=== PATIENT | female | born 1955 | race Caucasian/White ===

== ENCOUNTER 2017-07-16 06:02 | Inpatient (IN) | payer BC ==
[~2017-07-16 06:02] MED LIST: Acetaminophen TAB* 325 MG ONE; Acetaminophen TAB* 325 MG PO ONE; Buffered Lidocaine 0.9% SYRIN* 5 ML/SYR SYRINGE INTRADERM ONE; Clindamycin 900 MG IVPREMIX(* 900 MG/50 ML SDV IV ONE; Dexamethasone IV* 4 MG/ML 1 ML (4 MG) IV SLOW PU ONE; Dexamethasone IV* 4 MG/ML 1 ML (4 MG) ONE; Dexamethasone TAB* 4 MG PO ONE; Famotidine IV* 10 MG/ML 2 ML (20 mg) IV ONE; Famotidine IV* 10 MG/ML 2 ML (20 mg) ONE; Levalbuterol 0.63MG/3ML NEB* UNIT OF USE INH ONE; Levalbuterol 1.25MG/0.5ML NEB ONE
[2017-07-16] MEDS ORDERED: Lidocaine 2% PF * 5 ML VIAL ONE (07:01)
[2017-07-16] MEDS ORDERED: Propofol* 500 MG/50 ML BTL ONE (07:01)
[2017-07-16] MEDS ORDERED: Bupivacaine 0.5% SDV PF* 30 ML VIAL ONE ×2 (07:01→08:07)
[2017-07-16] MEDS ORDERED: Midazolam* 1 MG/ML 5 ML VIAL (5 MG) ONE (07:04)
[2017-07-16] MEDS ORDERED: fentaNYL* 50 MCG/ML 2 ML VIAL (100 MCG VIAL) ONE (07:05)
[2017-07-16] MEDS ORDERED: Morphine PF AMP (0.5MG/ML)* 5 MG/10 ML AMP ONE (07:06)
[2017-07-16] MEDS ORDERED: Bupivacaine 0.25% SDV* 30 ML ONE (07:17)
[2017-07-16] MEDS ORDERED: Lidocaine 1.5% EPI 1:200,000* 30 ML SDV ONE (08:07)
[2017-07-16] MEDS ORDERED: oxyCODONE/Acetamin 5/325 MG* TAB PO PRN (08:13)
[2017-07-16] MEDS ORDERED: oxyCODONE TAB* 5 MG TAB PO PRN (08:13)
[2017-07-16] MEDS ORDERED: Acetaminophen TAB* 325 MG PO PRN (08:13)
[2017-07-16] MEDS ORDERED: Naloxone* 0.4 MG/ML 1 ML VIAL IV PRN (08:13)
[2017-07-16] MEDS ORDERED: Nalbuphine* 20 MG/ML 1 ML VIAL IV PRN (08:13)
[2017-07-16] MEDS ORDERED: Ondansetron INJ* 2 MG/ML VIAL IV PRN (08:13)
[2017-07-16] MEDS ORDERED: Scopolamine 1.5 mg* PATCH TRANSDERM PRN (08:13)
[2017-07-16] MEDS ORDERED: HYDROmorphone INJ* 1 MG/ML CARPUJECT SYRINGE IV PRN (08:15)
[2017-07-16] MEDS ORDERED: fentaNYL* 50 MCG/ML 2 ML VIAL (100 MCG VIAL) IV PRN (08:15)
[2017-07-16] MEDS ORDERED: diPHENhydraMINE IV* 50 MG/ML 1 ml VIAL (BENADRYL) IV PRN ×2 (08:15→10:44)
[2017-07-16] MEDS ORDERED: Ondansetron INJ* 2 MG/ML VIAL ONE (08:17)
[2017-07-16] MEDS ORDERED: Phenylephrine IV* 40 MCG/ML 10 ML SYRINGE ONE ×2 (08:39→09:33)
[2017-07-16] MEDS ORDERED: Midazolam* 1 MG/ML 2 ML VIAL (2 MG) ONE (08:53)
[2017-07-16] MEDS ORDERED: Propofol* 10 MG/ML 20 ML BTL IV PUSH ONE (09:26)
[2017-07-16] MEDS ORDERED: Polyethylene Glycol 3350* 17 GM PACKET PO PRN (10:44)
[2017-07-16] MEDS ORDERED: Bisacodyl SUPP* 10 MG SUPP PR PRN (10:44)
[2017-07-16] MEDS ORDERED: Albuterol HFA INHALER* 8 gm MDI INH PRN (10:54)
[2017-07-16] MEDS ORDERED: ZOLMITRIPTAN 2.5 MG PRN (10:54)
[2017-07-16] MEDS ORDERED: Albuterol/Ipratropium NEB.SOL* Albuterol 2.5 MG/Ipratropium 0.5 MG 3 ML INH PRN (10:54)
--- NOTE | 2017-07-16 11:43 | RAD ---
INDICATION: Postoperative left knee arthroplasty COMPARISON: None TECHNIQUE: AP and crosstable lateral views were obtained. FINDINGS: There is hemiarthroplasty of the medial joint space compartment. Both femoral and tibial components appear well seated. There are anterior skin wang. There is a cooling jacket in place. IMPRESSION: LEFT KNEE HEMIARTHROPLASTY
--- NOTE | 2017-07-16 12:03 | OP ---
DATE OF OPERATION: 07/16/17 - ROOM #348 DATE OF : 59 ATTENDING SURGEON: Sebastien Long MD BREWERY WORKER: Priscilla Johnson RPA ANESTHESIOLOGIST: Sosa Strauss MD ANESTHESIA: Spinal and sedation. PRE-OP DIAGNOSIS: Left knee osteoarthritis. POST-OP DIAGNOSIS: Left knee osteoarthritis. OPERATIVE PROCEDURE: Left knee medial compartment arthroplasty. ESTIMATED BLOOD LOSS: 75 cc. COMPLICATIONS: None. HARDWARE: [employer] Knee #2 tibia, D femur, 9 mm polyethylene. 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 She had very specific wear in the medial compartment with complete loss of the articular cartilage, which was identified by both MRI and arthroscopy and the remainder of the knee was in relatively good condition. I discussed with her that a partial knee arthroplasty should work well to decrease her pain and improve her function. Risks of surgery such as infection, scar formation, stiffness, DVT, pulmonary embolism, hardware failure and the need for eventual revision were some of the risks discussed. She had been declared medically optimized and wished to proceed. DESCRIPTION OF PROCEDURE: The patient was brought to the OR and spinal anesthesia with Astramorph was introduced. Tom catheter was placed and tourniquet was placed over the proximal left thigh. Total tourniquet time would be 79 minutes. Left knee was prepped and then draped. Priscilla Johnson was present for the entire case, from positioning to prepping, approach, trialling the components and closure; the case could not be done without an geological survey field assistant. Esmarch was used to exsanguinate the leg and the tourniquet was raised. Midline incision was made, beginning just medial to the tibial tubercle and carried about 2 cm above the superior pole of the patella. Incision was carried down through the skin and subcutaneous tissues. Small bleeders encountered were ligated using electrocautery. Extensor mechanism was exposed and a sharp parapatellar arthrotomy was made. Quite a bit of clear yellowish joint fluid was encountered. Portion of the fat pad was sharply excised and soft tissues were sharply elevated from the medial side of the tibia. Spurs and exposed bone were immediately evident on the femur and the tibia. An 8 mm drill was used to open the femoral canal and the intramedullary guide was placed. Guide was adjusted until it appeared parallel with the epicondyles and perpendicular to the shaft of the tibia and this was then pinned into place. Distal femoral cut was then taken. It appeared that a nice cut was obtained. Femur was sized and the D sat very nicely, the E came up just a little bit far so it looked it might impinge on the patella and while the D did not fill side to side, the E was definitely too tall; therefore, the D was selected. The cutting guide was pinned into place and the drill holes were made as were as the chamfer cut and posterior condyle cut. Attention was turned to the tibia. External guide was placed and adjusted until it appeared that it would aim down towards the second metatarsal and was parallel with the shaft of the tibia. It appeared there was adequate slope as well and guide was then pinned into place. Cutting guide was then adjusted until appeared would take 2 mm from the worn medial side and this was then pinned into place as well. Proximal tibial cut was taken. It could be seen with the 8 mm Sizer block. She was a bit loose and the 10 sat nice and snug. It did not appear that she was overstuffed with the 10, as the 10 just slid in nicely. Soft tissues, including remainder of meniscus, were removed from the backside of the tibia. Tibia was sized and the trial sat very nicely. The 3 would appear to have a little bit of overhang after I took down the spurs. Trial was pinned into place and the proximal tibia was drilled. I made a little recess for the keel prior to this as well. Trial instrumentation was placed and with the 9, she seemed to come out fairly nicely into full extension. Trial instrumentation was removed. The knee was copiously pulse lavaged. Cement was being prepared. Tibia followed by femur were cemented into place and excess cement was removed. She was trialed with the 9 and this really seemed to fit well. I actually had troubles fitting a 10 into there. A 9 polyethylene was then snapped into place. Knee was again searched for any excess cement and few small pieces were found. Knee was again copiously pulse lavaged and the arthrotomy was then repaired. Tourniquet was let down. Wound was again copiously pulse lavaged and subcutaneous tissues were approximated with 2-0 Vicryl. Skin was closed using wang. Sterile dressing and a Cryo/ Cuff were applied in the OR. The patient was then awakened, stable on transfer to the recovery room. [id number]/[facility] #: [id number] FAUSTINA
[2017-07-16] MEDS: D5W 1/2 NS 1000 ML BAG* 1,000 ML IV SCH ×2 (12:30→21:17)
--- NOTE | 2017-07-16 13:34 | CONS ---
CC: Ayleen Bhandari MD; Dr. Sebastien Long CONSULTATION REPORT: DATE OF CONSULT: 07/16/17 PRIMARY CARE PROVIDER: Ayleen Bhandari MD PHYSICIAN REQUESTING CONSULTATION: Dr. Sebastien Long. ATTENDING PHYSICIAN: Lily Bauer MD (report dictated provided by Latisha Gonzales NP). REASON FOR CONSULTATION: Medical comanagement. 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 Long. The patient has a history of PE in the past and pulmonary hypertension that came about as a sequela from her pulmonary embolism. At the time of her pulmonary embolism, she had a hypercoagulable workup that was completely negative. The patient states she had been on control pills for a long time prior to the pulmonary embolism, but was off of them the pulmonary embolism was actually discovered. The patient denies any current shortness of breath and states that her breathing is quite stable. The patient states she uses Advair as well as a nebulizer and albuterol inhaler as needed. The patient states she has not had to use her nebulizer or inhaler recently. The patient also has a history of hypothyroidism and blood pressure, but states she is compliant with her medications and blood pressure is controlled. Hospitalists were asked to assist with the comanagement of the patient during her hospitalization. PAST MEDICAL HISTORY: Depression, pulmonary embolism in 2005, migraines, hearing impairment, pulmonary hypertension after PE, hypothyroidism, dyspnea, asthma, enlarged thoracic aorta. PAST SURGICAL HISTORY: Hysterectomy, knee arthroscopy, . MEDICATIONS: Home medications include: 1. Zyrtec 10 mg oral in the evening. 2. Zomig 2.5 mg oral as needed. 3. Turmeric 500 mg oral in the morning. 4. Naproxen 220 mg oral every 6 hours as needed. 5. Singulair 10 mg oral in the morning. 6. Cozaar 25 mg oral in the evening. 7. Synthroid 100 mcg oral in the morning. 8. Ipratropium 1 inhaled nebulizer daily as needed. 9. Advil 200 mg oral twice daily as needed. 10. Prozac 20 mg oral in the morning. 11. Ventolin HFA 2 puffs inhaled every 6 hours as needed. 12. Naproxen 220 mg oral every 8 hours as needed. Current medications while in the hospital: 1. Tylenol 650 mg oral every 4 hours as needed. 2. Clindamycin q.8. 3. Benadryl 12.5 mg IV as needed. 4. Colace twice a day. 5. Heparin subcu 5000 units subcu every 8 hours. 6. Lactated Ringer's. 7. Dilaudid 0.2 mg IV as needed. 8. Lactulose 30 mL oral twice daily. 9. Milk of mag 30 mL oral twice daily. 10. Multivitamin 1 tablet daily. 11. Narcan 5 mg IV q.6 as needed. 12. Zofran 4 mg IV q.6 as needed. 13. Oxycodone 5 or 10 mg every 3 hours as needed. 14. Percocet 5/325 every 4 hours as needed. 15. MiraLAX 17 g oral daily as needed. 16. Scopolamine 1 patch transdermal every 72 hours. ALLERGIES: Include IV CONTRAST, KEFLEX, DILTIAZEM, SULFA ANTIBIOTICS, BACTRIM. FAMILY HISTORY: The patient's father had a history of aortic aneurysm and sister had a history of breast cancer. SOCIAL HISTORY: The patient denies any tobacco use. She has an occasional alcohol drink. 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 She is . Her , Adriel Rueda will be her surrogate decision maker in the event the patient cannot make decisions for herself. REVIEW OF SYSTEMS: I performed a 14-point review of systems; all the pertinent positives and negatives are mentioned in the history of present illness. The remaining review of systems are negative. PHYSICAL EXAM: Vital Signs: Temperature 98.2, heart rate 66, respiratory rate 16, blood pressure 115/68, oxygen saturation 94% on 2 L. Appearance: The patient is alert, pleasant, appeared to be in no apparent distress. Head, Eyes , Ears, Nose and Throat: Normocephalic/atraumatic. Pupils were equal and reactive to light. Extraocular movements were intact. Neck: Neck was supple. There was no lymphadenopathy noted. Cardiac: S1 and S2 were crisp. There were no murmurs, rubs, or gallops heard. Extremities: There is no lower extremity edema. DP and PT pulses were 2+ and symmetric. Respiratory: There was no accessory muscle use. Lungs are clear to auscultation. Abdomen was soft , nontender, and nondistended. There were decreased bowel sounds. Musculoskeletal: There was no clubbing or cyanosis noted. The patient exhibited equal strength in all extremities. Skin: There were no rashes or abnormalities seen. Neuro: Cranial nerves II through XII were intact. The patient moves all extremities. Lower extremities were intact to light touch. Psych: The patient is alert and oriented x3. LABORATORY DATA: Preop from 06/19/17, sodium 134, potassium 4.6, chloride 102, CO2 27, BUN 16, creatinine 0.76, glucose 79. Calcium 8.9. Liver function tests within normal limits. White blood cell count 5.1, hemoglobin 13.8, hematocrit 40, platelet count 249. INR 0.9, PTT 31.8. IMPRESSION: This is a 61-year-old female with past medical history significant for pulmonary embolism and pulmonary hypertension as a result as well as hypothyroidism, hypertension, who underwent an elective partial left total knee replacement with Dr. Long. Hospitalists were asked to assist in the comanagement of the patient's other medical conditions during her hospitalization. ASSESSMENT AND PLAN: 1. Postop day #0, left partial total knee replacement. Management per Orthopedic Surgery. The patient will have oral and IV medications for pain. The patient will have physical therapy and occupational therapy. 2. History of pulmonary embolism. The patient will have prophylactic anticoagulation as per what her primary care provider has recommended. Initially, she will be placed on subcu heparin and then when it is okay with orthopedic surgeons, Dr. Bhandari has recommended and already prescribed Lovenox 30 mg subcu q.12 hours for the patient. The plan is for the patient to stay on this for 30 days given her history of pulmonary embolism. 3. History of pulmonary hypertension. Continue with Advair and Xopenex inhaler while she is here. Provide supplemental oxygen as needed. 4. Hypertension. Continue Cozaar with hold parameters. 5. Hypothyroidism. Continue Synthroid. 6. Fluids, electrolytes, and nutrition. The patient will be on clears and advance as tolerated. 7. Code status is full. 8. DVT prophylaxis. She is at very high risk given her recent surgery and history of pulmonary embolism. She will be initially started on subcu heparin and transition to Lovenox when Orthopedic Surgery is okay with that per recommendations from her PCP. TIME SPENT: Time for this consultation was 60 minutes, and 35 minutes were spent with the patient discussing medications, past medical history, and events leading up to her elective surgery. Reviewed by LATISHA GONZALES NP 07/16/2017 1800 [id number]/[facility] #: [id number] FAUSTINA
[2017-07-16] MEDS: Clindamycin 600 MG IVPREMIX(* 600 MG/50 ML SDV IV SCH (15:33)
[2017-07-16] MEDS: Cetirizine* 10 MG TAB PO SCH (17:51)
[2017-07-16] MEDS ORDERED: Losartan TAB* 25 MG PO SCH ×2 (18:00)
[2017-07-16] MEDS: Magnesium Hydroxide LIQ* 30 ML UDC PO SCH (19:33)
[2017-07-16] MEDS: Docusate CAP* 100 MG PO SCH (19:37)
[2017-07-17] MEDS ORDERED: Morphine INJ* 10 MG/ML 1 ML CARPUJECT IV PRN
[2017-07-17] MEDS ORDERED: oxyCODONE/Acetamin 5/325 MG* TAB PO PRN
[2017-07-17] MEDS ORDERED: Ondansetron TAB* 4 MG PO PRN
[2017-07-17] MEDS: Clindamycin 600 MG IVPREMIX(* 600 MG/50 ML SDV IV SCH ×2 (00:07→07:48)
[2017-07-17] MEDS: oxyCODONE TAB* 5 MG TAB PO PRN ×3 (03:35→11:55)
[2017-07-17] MEDS: Acetaminophen TAB* 325 MG PO PRN ×3 (03:36→11:55)
[2017-07-17] MEDS: Levothyroxine TAB* 100 MCG TAB PO SCH (05:30)
[2017-07-17] MEDS: D5W 1/2 NS 1000 ML BAG* 1,000 ML IV SCH (05:38)
[2017-07-17 05:39] LABS: Hematocrit 32 % (35-47); Hemoglobin 11.3 g/dl (12.0-16.0)
[2017-07-17 05:51] LABS: BUN/Creatinine Ratio 15.4 (8-20); Calcium 8.1 mg/dL (8.6-10.3); EGFR Non-African American 93.3 (>60); Potassium 4.1 mmol/L (3.5-5.0)
[2017-07-17] MEDS ORDERED: SUMAtriptan TAB* 50 MG PO PRN (06:43)
[2017-07-17] MEDS: Ondansetron INJ* 2 MG/ML VIAL IV PRN ×2 (07:50→16:22)
[2017-07-17] MEDS ORDERED: NS 0.9% 1000 ML* 1,000 ML IV SCH (08:00)
[2017-07-17] MEDS: Magnesium Hydroxide LIQ* 30 ML UDC PO SCH ×2 (09:04→21:49)
[2017-07-17] MEDS: Vitamin THERAPEUTIC TAB PO SCH (09:15)
[2017-07-17] MEDS: FLUoxetine CAP* 20 MG PO SCH (09:15)
[2017-07-17] MEDS: Docusate CAP* 100 MG PO SCH ×2 (09:15→21:50)
[2017-07-17] MEDS: Montelukast Sodium TAB* 10 MG PO SCH (09:15)
--- NOTE | 2017-07-17 09:15 | PN ---
Progress Note - Progress Note Date of Service: 07/17/17 SOAP: Subjective: []Patient seen out of bed in chair. Left knee pain is reported as 5/10, tolerable. Had 1 episode of nausea and vomiting this morning associated with migraine. She remains mildly nauseous and migraine has resolved. Patient does suffer from migraines at home, and character matches her usual migraine- Right temporal region, nausea and slight dizziness with no aura or visual changes. Tom was removed this morning and she urinate on her own. No BM and no passing gas yet. No chest pain, shortness of breath, fever, chills, LLE numbness or tingling. Objective: [] Vital Signs Temp 98.1 F 07/17/17 07:34 Pulse 67 07/17/17 07:34 Resp 16 07/17/17 08:00 BP 102/59 07/17/17 07:34 Pulse Ox 98 07/17/17 07:34 Intake & Output 07/16/17 07/17/17 07/17/17 18:59 06:59 18:59 Intake Total 3480 3259 Output Total 635 1850 Balance 2845 1409 Intake: IV Fluids 1950 1937 900MG CLINDAMYCIN 50 D5W 1/2 NS 1937 lr 1900 IVPB 122 ABX - CLINDAMYCIN 122 Oral 1530 1200 Output: Urine 0 Tom 625 1850 Estimated Blood Loss 10 Other: # Bowel Movements 0 Laboratory Last Values Hgb 11.3 g/dl (12.0-16.0) L 07/17/17 05:26 Hct 32 % (35-47) L 07/17/17 05:26 Sodium 122 mmol/L (133-145) L 07/17/17 05:26 Potassium 4.1 mmol/L (3.5-5.0) 07/17/17 05:26 Chloride 95 mmol/L (101-111) L 07/17/17 05:26 Carbon Dioxide 23 mmol/L (22-32) 07/17/17 05:26 Anion Gap 4 mmol/L (2-11) 07/17/17 05:26 BUN 10 mg/dL (6-24) 07/17/17 05:26 Creatinine 0.65 mg/dL (0.51-0.95) 07/17/17 05:26 Est GFR ( Amer) 120.0 (>60) 07/17/17 05:26 Est GFR (Non-Af Amer) 93.3 (>60) 07/17/17 05:26 BUN/Creatinine Ratio 15.4 (8-20) 07/17/17 05:26 Glucose 109 mg/dL (70-100) H 07/17/17 05:26 Calcium 8.1 mg/dL (8.6-10.3) L 07/17/17 05:26 Blood Type A Positive 07/16/17 06:22 Antibody Screen Negative 07/16/17 06:22 General: Sitting in chair comfortably. Calm, cooperative and in no acute distress LLE: Dressing is clean, dry and intact. Cryotherapy in place. Bilateral lower extremities: Calves are supple and nontender without erythema, edema or palpable cords. Eli's sign is negative. Dorsiflexion and plantarflexion intact. DP/PT pulses 2+ and symmetic. Sensation intact distally. Assessment: []Left Medial Compartment Arthroplasty 07/16 Dr Long Plan: []WBAT PT/OT Pain control with oxycodone, tylenol History of PE. On heparin during hospital stay. Her PCP, Dr Bhandari, prescribed 1 month of lovenox for her to use during her post-op period.
[2017-07-17] MEDS ORDERED: Metoclopramide IV* 5 MG/ML 2 ML VIAL IV PRN (10:51)
[2017-07-17] MEDS ORDERED: Metoclopramide IV* 5 MG/ML 2 ML VIAL ONE (10:59)
[2017-07-17] MEDS: Heparin VIAL(*) 5000 UNITS/ML VIAL (FIVE THOUSAND) SUBCUT SCH ×2 (14:33→21:51)
[2017-07-17] MEDS ORDERED: Ketorolac INJ* 30 MG/ML 1 ML VIAL IV PUSH PRN (15:56)
[2017-07-17] MEDS ORDERED: HYDROcodone/ACETAMIN 5-325 MG* 1 TAB PO PRN (16:29)
--- NOTE | 2017-07-17 16:36 | PN ---
Subjective Date of Service: 07/17/17 Interval History: This is a 61 yo female with asthma, HTN, hypothyroidism and prior PE who is s/p partial knee replacement. Hospitalist group has been asked to consult for medical co-management. Patient reports that she has been quite nauseated today. She believes it may be related to the oxycodone. She denies abd pain or diarrhea. No cough, SOB or CP. Pain has not been well controlled. Objective Active Medications: Acetaminophen (Tylenol Tab*) 650 mg PO Q4H PRN PRN Reason: fever, pain Last Admin: 07/17/17 11:55 Dose: 650 mg Hydrocodone Bitart/Acetaminophen (Notrees 5-325 Tab*) 2 tab PO Q4H PRN PRN Reason: PAIN - MODERATE Hydrocodone Bitart/Acetaminophen (Notrees 5-325 Tab*) 1 tab PO Q4H PRN PRN Reason: PAIN Albuterol (Ventolin Hfa Inhaler*) 2 puff INH Q6H PRN PRN Reason: SOB/WHEEZING Albuterol/Ipratropium (Duoneb (Albuterol 2.5 Mg/Ipratropium 0.5 Mg)) 1 neb INH DAILY PRN PRN Reason: SOB/WHEEZING Bisacodyl (Dulcolax Supp*) 10 mg SD DAILY PRN PRN Reason: constipation Cetirizine HCl (Zyrtec*) 10 mg PO QPM [facility] Last Admin: 07/16/17 17:51 Dose: 10 mg Diphenhydramine HCl (Benadryl Iv*) 12.5 mg IV Q6H PRN PRN Reason: PRURITIS Docusate Sodium (Colace Cap*) 100 mg PO BID [facility] Last Admin: 07/17/17 09:15 Dose: 100 mg Fluoxetine HCl (Prozac Cap*) 20 mg PO QAM [facility] Last Admin: 07/17/17 09:15 Dose: 20 mg Heparin Sodium (Porcine) (Heparin Vial(*)) 5,000 units SUBCUT Q8HR [facility] Last Admin: 07/17/17 14:33 Dose: 5,000 units Ketorolac Tromethamine (Toradol Inj*) 30 mg IV PUSH Q6H PRN PRN Reason: PAIN - MILD TO MODERATE Stop: 07/19/17 23:59 Last Admin: 07/17/17 16:17 Dose: 30 mg Lactulose (Lactulose*) 30 ml PO BID [facility] Last Admin: 07/17/17 09:04 Dose: Not Given Levothyroxine Sodium (Synthroid Tab*) 100 mcg PO 0600 [facility] Last Admin: 07/17/17 05:30 Dose: 100 mcg Magnesium Hydroxide (Milk Of Magnesia Liq*) 30 ml PO BID [facility] Last Admin: 07/17/17 09:04 Dose: Not Given Metoclopramide HCl (Reglan Iv*) 10 mg IV Q6H PRN PRN Reason: NAUSEA/VOMITING Last Admin: 07/17/17 11:00 Dose: 10 mg Montelukast Sodium (Singulair Tab*) 10 mg PO QAM [facility] Last Admin: 07/17/17 09:15 Dose: 10 mg Morphine Sulfate (Morphine Inj (Syringe)*) 5 mg IV Q2H PRN PRN Reason: PAIN - BREAKTHROUGH Multivitamins (Theragran Tab*) 1 tab PO DAILY [facility] Last Admin: 07/17/17 09:15 Dose: 1 tab Ondansetron HCl (Zofran Inj*) 4 mg IV Q6H PRN PRN Reason: nausea Last Admin: 07/17/17 16:22 Dose: 4 mg Ondansetron HCl (Zofran Tab*) 4 mg PO Q6H PRN PRN Reason: NAUSEA Pharmacy Profile Note (Scopolomine Patch Remove*) 1 note PATCH OFF ONCE PRN PRN Reason: NAUSEA Polyethylene Glycol/Electrolytes (Miralax*) 17 gm PO DAILY PRN PRN Reason: Constipation Scopolamine (Transderm-Scop 1.5 Mg Patch*) 1 patch TRANSDERM Q72H PRN PRN Reason: nausea Last Admin: 07/17/17 10:16 Dose: 1 patch Sumatriptan Succinate (Imitrex Tab*) 50 mg PO BID PRN PRN Reason: MIGRAINES Last Admin: 07/17/17 06:58 Dose: 50 mg Vital Signs: Temp Pulse Resp BP Pulse Ox 97.8 F 67 18 124/73 99 07/17/17 15:17 07/17/17 15:17 07/17/17 15:17 07/17/17 15:17 07/17/17 15:17 Oxygen Devices in Use Now: None Appearance: Mildly ill appearing middle aged female in NAD Respiratory: Symmetrical Chest Expansion and Respiratory Effort, Clear to Auscultation Cardiovascular: NL Sounds; No Murmurs; No JVD, RRR Abdominal: NL Sounds; No Tenderness; No Distention Extremities: No Edema Skin: No Rash or Ulcers Neurological: Alert and Oriented x 3 Result Diagrams: 07/17/17 05:26 07/17/17 05:26 Assess/Plan/Problems-Billing Assessment: This is a 61 yo female with asthma, HTN, hypothyroidism, h/o PE and associated pulm HTN who presented for elective partial knee replacement with Dr Long. Hospitalist group has been asked to consult for medical co-management. - Patient Problems (1) Status post right partial knee replacement Comment: POD #1 Struggling with pain and nausea control Trial use of hydrocodone as opposed to oxycodone to see if this is better tolerated (2) Hyponatremia Comment: May be dilutional related to post-op fluids Switched from D51/2NS to NS Repeat BMP in am (3) Asthma Comment: Mild intermittent No acute exacerbation (4) Hypertension Comment: Normotensive Holding ARB at this time until she is no longer nauseated (5) History of pulmonary embolus (PE) Comment: Reviewed with PCP pre-op Recommend 30mg Lovenox bid x 4 weeks (6) Hypothyroidism Comment: Cont levothyroxine (7) Full code status (8) DVT prophylaxis Comment: per ortho, currently receiving SQ heparin Recommend switching to 30 mg Lovenox bid Status and Disposition: Dispo per ortho. Hospitalist group will continue to follow along
[2017-07-17] MEDS: Cetirizine* 10 MG TAB PO SCH (17:32)
[2017-07-17] MEDS: HYDROcodone/ACETAMIN 5-325 MG* 1 TAB PO PRN ×2 (17:33→21:50)
[2017-07-17] MEDS ORDERED: Apixaban* 5 MG TAB PO SCH (21:00)
[2017-07-18] MEDS: HYDROcodone/ACETAMIN 5-325 MG* 1 TAB PO PRN ×4 (04:30→20:33)
[2017-07-18] MEDS: Levothyroxine TAB* 100 MCG TAB PO SCH (06:03)
[2017-07-18] MEDS: Heparin VIAL(*) 5000 UNITS/ML VIAL (FIVE THOUSAND) SUBCUT SCH (06:04)
[2017-07-18 06:52] LABS: Hematocrit 35 % (35-47)
[2017-07-18 07:02] LABS: BUN/Creatinine Ratio 12.7 (8-20); Calcium 8.5 mg/dL (8.6-10.3); EGFR African American 108.4 (>60); EGFR Non-African American 84.3 (>60)
[2017-07-18] MEDS ORDERED: Furosemide IV* 10 MG/ML 2 ML VIAL (20 MG) IV ONE (07:25)
[2017-07-18] MEDS: FLUoxetine CAP* 20 MG PO SCH (08:47)
[2017-07-18] MEDS: Vitamin THERAPEUTIC TAB PO SCH (08:47)
[2017-07-18] MEDS: Montelukast Sodium TAB* 10 MG PO SCH (08:47)
[2017-07-18] MEDS: Docusate CAP* 100 MG PO SCH ×2 (08:47→20:33)
--- NOTE | 2017-07-18 09:07 | PN ---
Progress Note - Progress Note Date of Service: 07/18/17 SOAP: Subjective: []Patient seen at bedside. Her pain is well controlled. She reports mild nausea today but no vomiting since yesterday. She had a BM today. She denies confusion , dizziness, chest pain, shortness of breath, leg numbness, fever or chills. Objective: [] Vital Signs Temp 98.1 F 07/18/17 07:39 Pulse 78 07/18/17 08:07 Resp 18 07/18/17 08:46 BP 131/74 07/18/17 07:39 Pulse Ox 95 07/18/17 07:39 Intake & Output 07/17/17 07/18/17 07/18/17 18:59 06:59 18:59 Intake Total 1508 1120 320 Output Total 1300 1500 Balance 208 -380 320 Intake: IV Fluids 1358 D5W 1/2 NS 358 NS (0.9%) 1000 IVPB 50 ABX - CLINDAMYCIN 50 Oral 100 1120 320 Output: Urine 300 1500 Emesis 1000 Other: # Bowel Movements 0 Laboratory Last Values Hgb 12.0 g/dl (12.0-16.0) 07/18/17 06:28 Hct 35 % (35-47) 07/18/17 06:28 Sodium 123 mmol/L (133-145) L 07/18/17 06:28 Potassium 4.0 mmol/L (3.5-5.0) 07/18/17 06:28 Chloride 94 mmol/L (101-111) L 07/18/17 06:28 Carbon Dioxide 26 mmol/L (22-32) 07/18/17 06:28 Anion Gap 3 mmol/L (2-11) 07/18/17 06:28 BUN 9 mg/dL (6-24) 07/18/17 06:28 Creatinine 0.71 mg/dL (0.51-0.95) 07/18/17 06:28 Est GFR ( Amer) 108.4 (>60) 07/18/17 06:28 Est GFR (Non-Af Amer) 84.3 (>60) 07/18/17 06:28 BUN/Creatinine Ratio 12.7 (8-20) 07/18/17 06:28 Glucose 96 mg/dL (70-100) 07/18/17 06:28 Calcium 8.5 mg/dL (8.6-10.3) L 07/18/17 06:28 Blood Type A Positive 07/16/17 06:22 Antibody Screen Negative 07/16/17 06:22 General: Calm, cooperative. Well appearing, no acute distress. LLE: Dressing is CDI. No surrounding erythema. + bruising inferior to dressing Bilateral lower extremities: Calves supple and nontender without erythema or edema. No palpable cords and negative cher's sign. DP/PT pulses 2+. DF/PT intact. Sensation intact distally. Assessment: []s/p Left medial compartment arthroplasty 07/16/17, Dr. Long Plan: []WBAT PT/OT Co-managed with hospitalist service Per discussion with hospitalist Sami Howell: - switched from heparin to lovenox 40 mg SQ Q 12 hours. Patient has this medication at home already for post op coverage as well. - d/c oxycodone due to nausea, transition to hydrocodone - hyponatremia managed by medicine, not a contraindication to discharge at this time.
[2017-07-18] MEDS: Magnesium Hydroxide LIQ* 30 ML UDC PO SCH ×2 (09:09→20:34)
--- NOTE | 2017-07-18 10:32 | PN ---
Progress Note - Progress Note Date of Service: 07/18/17 SOAP: Subjective: [Pt reports nausea better with the change in pain meds, but still apprehensive about it. Also worried about doing stairs today. Overall though, better than yesterday with the knee pain and nausea.] Objective: [VSS: afebrile. Labs: H/H: , Na still low at 123 Left knee: Wound benign, no drainage, no erythema, but swollen and ecchymotic about knee and extends down into the top half of the calf. Still N/V intact, easily wiggling toes and ankle.] Assessment: [Stable] Plan: [Cont OOB/PT, DVT prophalaxis, care. If does extremely well with PT and nausea stays improved/she is able to tolerate PO, possible d/c this afternoon, but more likely tomorrow AM.]
--- NOTE | 2017-07-18 11:24 | PN ---
Subjective Date of Service: 07/18/17 Interval History: Patient reports that her symptoms are better today. Her nausea has improved. She was able to eat breakfast. Pain is adequately controlled today. No cough, SOB. No abd pain. She had a small BM today. Objective Active Medications: Acetaminophen (Tylenol Tab*) 650 mg PO Q4H PRN PRN Reason: fever, pain Last Admin: 07/17/17 11:55 Dose: 650 mg Hydrocodone Bitart/Acetaminophen ([place] 5-325 Tab*) 2 tab PO Q4H PRN PRN Reason: PAIN - MODERATE Last Admin: 07/18/17 08:46 Dose: 2 tab Hydrocodone Bitart/Acetaminophen ([place] 5-325 Tab*) 1 tab PO Q4H PRN PRN Reason: PAIN Albuterol (Ventolin Hfa Inhaler*) 2 puff INH Q6H PRN PRN Reason: SOB/WHEEZING Albuterol/Ipratropium (Duoneb (Albuterol 2.5 Mg/Ipratropium 0.5 Mg)) 1 neb INH DAILY PRN PRN Reason: SOB/WHEEZING Bisacodyl (Dulcolax Supp*) 10 mg MI DAILY PRN PRN Reason: constipation Cetirizine HCl (Zyrtec*) 10 mg PO QPM [facility] Last Admin: 07/17/17 17:32 Dose: 10 mg Diphenhydramine HCl (Benadryl Iv*) 12.5 mg IV Q6H PRN PRN Reason: PRURITIS Docusate Sodium (Colace Cap*) 100 mg PO BID [facility] Last Admin: 07/18/17 08:47 Dose: 100 mg Enoxaparin Sodium (Lovenox(*)) 40 mg SUBCUT Q12H [facility] Fluoxetine HCl (Prozac Cap*) 20 mg PO QAM [facility] Last Admin: 07/18/17 08:47 Dose: 20 mg Ketorolac Tromethamine (Toradol Inj*) 30 mg IV PUSH Q6H PRN PRN Reason: PAIN - MILD TO MODERATE Stop: 07/19/17 23:59 Last Admin: 07/17/17 16:17 Dose: 30 mg Lactulose (Lactulose*) 30 ml PO BID [facility] Last Admin: 07/18/17 08:47 Dose: 30 ml Levothyroxine Sodium (Synthroid Tab*) 100 mcg PO 0600 [facility] Last Admin: 07/18/17 06:03 Dose: 100 mcg Magnesium Hydroxide (Milk Of Magnfrederic Liq*) 30 ml PO BID [facility] Last Admin: 07/18/17 09:09 Dose: Not Given Metoclopramide HCl (Reglan Iv*) 10 mg IV Q6H PRN PRN Reason: NAUSEA/VOMITING Last Admin: 07/17/17 11:00 Dose: 10 mg Montelukast Sodium (Singulair Tab*) 10 mg PO QAM [facility] Last Admin: 07/18/17 08:47 Dose: 10 mg Morphine Sulfate (Morphine Inj (Syringe)*) 5 mg IV Q2H PRN PRN Reason: PAIN - BREAKTHROUGH Multivitamins (Theragran Tab*) 1 tab PO DAILY [facility] Last Admin: 07/18/17 08:47 Dose: 1 tab Ondansetron HCl (Zofran Inj*) 4 mg IV Q6H PRN PRN Reason: nausea Last Admin: 07/17/17 16:22 Dose: 4 mg Ondansetron HCl (Zofran Tab*) 4 mg PO Q6H PRN PRN Reason: NAUSEA Last Admin: 07/18/17 08:42 Dose: 4 mg Pharmacy Profile Note (Scopolomine Patch Remove*) 1 note PATCH OFF ONCE PRN PRN Reason: NAUSEA Polyethylene Glycol/Electrolytes (Miralax*) 17 gm PO DAILY PRN PRN Reason: Constipation Scopolamine (Transderm-Scop 1.5 Mg Patch*) 1 patch TRANSDERM Q72H PRN PRN Reason: nausea Last Admin: 07/17/17 10:16 Dose: 1 patch Sumatriptan Succinate (Imitrex Tab*) 50 mg PO BID PRN PRN Reason: MIGRAINES Last Admin: 07/17/17 06:58 Dose: 50 mg Vital Signs: Temp Pulse Resp BP Pulse Ox 98.1 F 78 18 131/74 95 07/18/17 07:39 07/18/17 08:07 07/18/17 08:46 07/18/17 07:39 07/18/17 07:39 Oxygen Devices in Use Now: None Appearance: Well appearing middle aged female in NAD Respiratory: Symmetrical Chest Expansion and Respiratory Effort, Clear to Auscultation Cardiovascular: NL Sounds; No Murmurs; No JVD, RRR Abdominal: NL Sounds; No Tenderness; No Distention Extremities: - - trace LE edema bilaterally Neurological: Alert and Oriented x 3 Result Diagrams: 07/18/17 06:28 07/18/17 06:28 Assess/Plan/Problems-Billing Assessment: This is a 61 yo female with asthma, HTN, hypothyroidism, h/o PE and associated pulm HTN who presented for elective partial knee replacement with Dr Long. Hospitalist group has been asked to consult for medical co-management. - Patient Problems (1) Status post right partial knee replacement Comment: POD #2 Improved nausea and pain control (2) Hyponatremia Comment: Slight improvement to 123 mmol/L this am Ordered one dose of IV Lasix in hopes of excreting excess free fluid Repeat BMP this afternoon and tomorrow am (3) Asthma Comment: Mild intermittent - generally exercise induced No acute exacerbation (4) Hypertension Comment: Normotensive Holding ARB at this time until she is no longer nauseated (5) History of pulmonary embolus (PE) Comment: Reviewed with PCP pre-op Recommend 30mg Lovenox bid x 4 weeks (6) Hypothyroidism Comment: Cont levothyroxine (7) Full code status (8) DVT prophylaxis Comment: per ortho, 30mg Lovenox bid Status and Disposition: Dispo per ortho. Hospitalist group will continue to follow along
[2017-07-18 15:33] LABS: BUN/Creatinine Ratio 10.4 (8-20); Calcium 8.5 mg/dL (8.6-10.3); EGFR African American 98.7 (>60); EGFR Non-African American 76.7 (>60)
[2017-07-18] MEDS: Enoxaparin(*) 40 MG/0.4 ML SYR SUBCUT SCH (16:41)
[2017-07-18] MEDS: Cetirizine* 10 MG TAB PO SCH (18:29)
[2017-07-19] MEDS: HYDROcodone/ACETAMIN 5-325 MG* 1 TAB PO PRN ×2 (00:36→08:48)
[2017-07-19] MEDS: Enoxaparin(*) 40 MG/0.4 ML SYR SUBCUT SCH (04:35)
[2017-07-19] MEDS: Levothyroxine TAB* 100 MCG TAB PO SCH (06:00)
[2017-07-19 07:04] LABS: Hematocrit 33 % (35-47); Hemoglobin 11.7 g/dl (12.0-16.0)
[2017-07-19 07:17] LABS: BUN/Creatinine Ratio 13.3 (8-20); Calcium 8.4 mg/dL (8.6-10.3); EGFR African American 101.7 (>60); EGFR Non-African American 79.1 (>60); Potassium 4.3 mmol/L (3.5-5.0)
--- NOTE | 2017-07-19 08:40 | PN ---
Progress Note - Progress Note Date of Service: 07/19/17 SOAP: Subjective: []Patient seen at bedside. She feels well and is agreeable to discharge today. No difficulty with pain control. Tolerating PO, urinating and having bowel movements without difficulty. Denies dizziness, nausea, vomiting, chest pain, shortness of breath, fever, chills or leg numbness. Objective: [] Vital Signs Temp 98.6 F 07/19/17 07:20 Pulse 76 07/19/17 07:20 Resp 18 07/19/17 07:20 BP 119/61 07/19/17 07:20 Pulse Ox 95 07/19/17 07:20 Intake & Output 07/18/17 07/19/17 07/19/17 18:59 06:59 18:59 Intake Total 1315 800 Output Total 1999 2200 900 Balance -685 -1400 -900 Intake: Oral 1315 800 Output: Urine 19990 900 Other: # Bowel Movements 1 Estimated Stool Amount Small Laboratory Last Values Hgb 11.7 g/dl (12.0-16.0) L 07/19/17 06:24 Hct 33 % (35-47) L 07/19/17 06:24 Sodium 129 mmol/L (133-145) L 07/19/17 06:24 Potassium 4.3 mmol/L (3.5-5.0) 07/19/17 06:24 Chloride 98 mmol/L (101-111) L 07/19/17 06:24 Carbon Dioxide 28 mmol/L (22-32) 07/19/17 06:24 Anion Gap 3 mmol/L (2-11) 07/19/17 06:24 BUN 10 mg/dL (6-24) 07/19/17 06:24 Creatinine 0.75 mg/dL (0.51-0.95) 07/19/17 06:24 Est GFR ( Amer) 101.7 (>60) 07/19/17 06:24 Est GFR (Non-Af Amer) 79.1 (>60) 07/19/17 06:24 BUN/Creatinine Ratio 13.3 (8-20) 07/19/17 06:24 Glucose 101 mg/dL (70-100) H 07/19/17 06:24 Calcium 8.4 mg/dL (8.6-10.3) L 07/19/17 06:24 Blood Type A Positive 07/16/17 06:22 Antibody Screen Negative 07/16/17 06:22 General: Out of bed sitting comfortably in chair. Pleasant, calm and cooperative. In no acute distress. LLE: Incision CDI. Wound edges with no surrounding erythema and no discharge. Bilateral lower extremities: calves are supple, nontender, nonerythematous and nonedematous. No palpable cords and negative cher's sign. DP/PT pulses 2+ and symmetric. Brisk capillary refill distally. Sensation is intact to light touch distally. DF/KS intact. Assessment: []Left medial compartment arthroplasty 07/16/17, Dr. Long Hyponatremia- improved Plan: []WBAT PT/OT Home on lovenox ( has 1 month rx from PCP at home) Plan DC today Sodium trending towards normal. Home nursing to repeat at first visit of the week 07/23-
[2017-07-19] MEDS: Vitamin THERAPEUTIC TAB PO SCH (08:48)
[2017-07-19] MEDS: Montelukast Sodium TAB* 10 MG PO SCH (08:48)
[2017-07-19] MEDS: Docusate CAP* 100 MG PO SCH (08:48)
[2017-07-19] MEDS: Magnesium Hydroxide LIQ* 30 ML UDC PO SCH (08:48)
[2017-07-19] MEDS: FLUoxetine CAP* 20 MG PO SCH (08:48)
[2017-07-19] MEDS ORDERED: Scopolamine PATCH Remove* 1 NOTE MISC PATCH OFF PRN (10:00)
[2017-07-19 12:03] VITALS: BP 136/72
--- NOTE | 2017-07-19 13:48 | PN ---
Subjective Date of Service: 07/19/17 Interval History: Patient reports that she is doing well. She is being discharged by orthopedic surgery today. Objective Active Medications: Acetaminophen (Tylenol Tab*) 650 mg PO Q4H PRN PRN Reason: fever, pain Last Admin: 07/17/17 11:55 Dose: 650 mg Hydrocodone Bitart/Acetaminophen ([place] 5-325 Tab*) 2 tab PO Q4H PRN PRN Reason: PAIN - MODERATE Last Admin: 07/19/17 08:48 Dose: 2 tab Hydrocodone Bitart/Acetaminophen ([place] 5-325 Tab*) 1 tab PO Q4H PRN PRN Reason: PAIN Last Admin: 07/18/17 16:38 Dose: 1 tab Albuterol (Ventolin Hfa Inhaler*) 2 puff INH Q6H PRN PRN Reason: SOB/WHEEZING Albuterol/Ipratropium (Duoneb (Albuterol 2.5 Mg/Ipratropium 0.5 Mg)) 1 neb INH DAILY PRN PRN Reason: SOB/WHEEZING Bisacodyl (Dulcolax Supp*) 10 mg OR DAILY PRN PRN Reason: constipation Cetirizine HCl (Zyrtec*) 10 mg PO QPM [facility] Last Admin: 07/18/17 18:29 Dose: 10 mg Diphenhydramine HCl (Benadryl Iv*) 12.5 mg IV Q6H PRN PRN Reason: PRURITIS Docusate Sodium (Colace Cap*) 100 mg PO BID [facility] Last Admin: 07/19/17 08:48 Dose: 100 mg Enoxaparin Sodium (Lovenox(*)) 40 mg SUBCUT Q12H [facility] Last Admin: 07/19/17 04:35 Dose: 40 mg Fluoxetine HCl (Prozac Cap*) 20 mg PO QAM [facility] Last Admin: 07/19/17 08:48 Dose: 20 mg Ketorolac Tromethamine (Toradol Inj*) 30 mg IV PUSH Q6H PRN PRN Reason: PAIN - MILD TO MODERATE Stop: 07/19/17 23:59 Last Admin: 07/17/17 16:17 Dose: 30 mg Lactulose (Lactulose*) 30 ml PO BID [facility] Last Admin: 07/19/17 08:50 Dose: Not Given Levothyroxine Sodium (Synthroid Tab*) 100 mcg PO 0600 [facility] Last Admin: 07/19/17 06:00 Dose: 100 mcg Magnesium Hydroxide (Milk Of Magnesia Liq*) 30 ml PO BID [facility] Last Admin: 07/19/17 08:48 Dose: 30 ml Metoclopramide HCl (Reglan Iv*) 10 mg IV Q6H PRN PRN Reason: NAUSEA/VOMITING Last Admin: 07/17/17 11:00 Dose: 10 mg Montelukast Sodium (Singulair Tab*) 10 mg PO QAM [facility] Last Admin: 07/19/17 08:48 Dose: 10 mg Morphine Sulfate (Morphine Inj (Syringe)*) 5 mg IV Q2H PRN PRN Reason: PAIN - BREAKTHROUGH Multivitamins (Theragran Tab*) 1 tab PO DAILY [facility] Last Admin: 07/19/17 08:48 Dose: 1 tab Ondansetron HCl (Zofran Inj*) 4 mg IV Q6H PRN PRN Reason: nausea Last Admin: 07/17/17 16:22 Dose: 4 mg Ondansetron HCl (Zofran Tab*) 4 mg PO Q6H PRN PRN Reason: NAUSEA Last Admin: 07/18/17 08:42 Dose: 4 mg Pharmacy Profile Note (Scopolomine Patch Remove*) 1 note PATCH OFF ONCE PRN PRN Reason: NAUSEA Polyethylene Glycol/Electrolytes (Miralax*) 17 gm PO DAILY PRN PRN Reason: Constipation Scopolamine (Transderm-Scop 1.5 Mg Patch*) 1 patch TRANSDERM Q72H PRN PRN Reason: nausea Last Admin: 07/17/17 10:16 Dose: 1 patch Sumatriptan Succinate (Imitrex Tab*) 50 mg PO BID PRN PRN Reason: MIGRAINES Last Admin: 07/17/17 06:58 Dose: 50 mg Vital Signs: Temp Pulse Resp BP Pulse Ox 98.3 F 74 18 136/72 100 07/19/17 11:42 07/19/17 11:42 07/19/17 11:42 07/19/17 11:42 07/19/17 11:42 Oxygen Devices in Use Now: None Appearance: Well appearing in NAD, dressed and prepared for dc Respiratory: Symmetrical Chest Expansion and Respiratory Effort, Clear to Auscultation Cardiovascular: NL Sounds; No Murmurs; No JVD, RRR Abdominal: NL Sounds; No Tenderness; No Distention Extremities: No Edema Neurological: Alert and Oriented x 3 Result Diagrams: 07/19/17 06:24 07/19/17 06:24 Assess/Plan/Problems-Billing Assessment: This is a 61 yo female with asthma, HTN, hypothyroidism, h/o PE and associated pulm HTN who presented for elective partial knee replacement with Dr Long. Hospitalist group has been asked to consult for medical co-management. - Patient Problems (1) Status post right partial knee replacement Comment: POD #3 Discharge today (2) Hyponatremia Comment: Improved, Na 129 mmol/L at discharge (3) Asthma Comment: Mild intermittent - generally exercise induced No acute exacerbation (4) Hypertension Comment: Normotensive May resume ARB (5) History of pulmonary embolus (PE) Comment: Reviewed with PCP pre-op Recommend 30mg Lovenox bid x 4 weeks (6) Hypothyroidism Comment: Cont levothyroxine (7) Full code status (8) DVT prophylaxis Comment: per ortho, 30mg Lovenox bid Status and Disposition: Discharge today. No medical concerns. Resume home medications. Lovenox per PCP recommendations
--- NOTE | 2017-07-20 02:20 | DS ---
DISCHARGE SUMMARY: DATE OF ADMISSION: 07/16/17 DATE OF DISCHARGE: 07/19/17 PROVIDER AND SURGEON: Dr. Sebastien Long * (DICTATED BY MADAY FARMER) LAYDOWN MACHINE OPERATOR: MADAY Durán PREOPERATIVE DIAGNOSIS: Left knee osteoarthritis. POSTOPERATIVE DIAGNOSIS: Left knee osteoarthritis. OPERATIVE PROCEDURE: Left knee medial compartment arthroplasty. CONSULTATIONS: Included: 1. Physical therapy. 2. Occupational therapy. 3. Medicine. 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 She has been having trouble with knee pain and has undergone a knee arthroscopy, which identified very specific bone loss on both the medial femoral condyle and the medial tibial plateau. She has been treated conservatively with various injections, physical therapy, and still has very specific complaints of medial-sided pain. We had talked about partial versus total knee arthroplasty and have determined need for a left medial compartment arthroplasty. HOSPITAL COURSE: The patient was admitted to [facility] on 07/16/17 and underwent a left medial compartment arthroplasty by Dr. Long, which was uncomplicated. The patient recovered briefly in the postanesthesia care unit and was then transferred to the short-stay surgical unit in sterile condition. On postop day 1, the patient's H and H was 11.3/32. Dressing was clean, dry, and intact. The extremity was neurovascularly intact. She could demonstrate dorsi and plantar flexion with good strength. The patient was able to get out of bed for physical therapy. Pain was controlled with oxycodone. She did have some nausea and hyponatremia, which is being managed by Medicine. Her anticoagulation was controlled with heparin at this time. On postop day 2, her incision was clean, dry, and intact. Minimal drainage, no erythema or warmth. Her H and H was 12.2/35. Pain control was switched to hydrocodone due to nausea. She was switched from D5 one-half normal saline to normal saline for hyponatremia. On 07/19/17, her H and H was 11.7/33 and her sodium was 129. Lowest sodium during her stay was 122 on 07/17/17. Throughout the hospital course, vital signs remained stable and the patient was afebrile. DISCHARGE CONDITION: Stable. DISCHARGE MEDICATIONS: 1. Singulair 10 mg. 2. Ibuprofen discontinued. 3. Ipratropium bromide. 4. Albuterol 1 inhaled neb daily. 5. Fluoxetine 20 mg q.a.m. 6. Zomig 2.5 mg p.r.n. 7. Levothyroxine 100 mcg q.a.m. 8. Losartan 25 mg p.o. q.a.m. 9. Albuterol inhaler p.r.n. 10. Zyrtec 10 mg. 11. Turmeric 500 mg q.a.m. 12. Acetaminophen 650 mg q.4 hours p.r.n. not to exceed 4000 mg per day from all sources. 13. Docusate 100 mg p.o. b.i.d. 14. Lovenox 30 mg per 0.3 mL injection subcutaneously q.12 hours for 30 days. 15. [place] 5/325 one to two tabs q.4 hours p.r.n., MDD of 12. DISCHARGE INSTRUCTIONS: Wound care: okay to shower. No bathing, swimming, or submerging. Regular diet. Home nurses will provide wound care and remove wang in 10-12 days. May use stool softeners as needed. Call office if no bowel movement within 24 hours. Physical therapy and occupational therapy exercises as shown. Will have home physical therapy and home nursing. The patient does not require any INRs or INR blood draws as she is home on Lovenox alone and she will follow up with Dr. Long in 4 weeks, call for appointment. She is weightbearing as tolerated. She will return to the ED should she have any shortness of breath or chest pain. She will call the office with any erythema of wound site, increased pain of wound site, or drainage from the wound site. MADAY FARMER [id number]/[facility] #: [id number] [place]
== END 2017-07-19 13:50 | disposition home health service (06) | DRG 302 ==
LOC: AA 06:02 → SSU 12:18
PROVIDERS: ADMIT Orthopaedic Surgery; ATTEND Orthopaedic Surgery
PROC: 0SRD0L9 Replacement of Left Knee Joint with Medial Unicondylar Synthetic Substitute, Cemented, Open Approach (ICD-10-PCS; principal; 2017-07-16 07:30)
DX: M17.12 Unilateral primary osteoarthritis, left knee (principal); I42.8 Other cardiomyopathies; I27.20 Pulmonary hypertension, unspecified; E87.1 Hypo-osmolality and hyponatremia; M94.20 Chondromalacia, unspecified site; I77.810 Thoracic aortic ectasia; M23.92 Unspecified internal derangement of left knee; J20.9 Acute bronchitis, unspecified; G43.909 Migraine, unspecified, not intractable, without status migrainosus; I10 Essential (primary) hypertension; E03.9 Hypothyroidism, unspecified; J45.990 Exercise induced bronchospasm; F32.9 Major depressive disorder, single episode, unspecified; H91.90 Unspecified hearing loss, unspecified ear; R11.0 Nausea; Z90.710 Acquired absence of both cervix and uterus; Z80.3 Family history of malignant neoplasm of breast; Z88.8 Allergy status to other drugs, medicaments and biological substances; Z88.1 Allergy status to other antibiotic agents; Z88.2 Allergy status to sulfonamides; Z91.041 Radiographic dye allergy status; Z86.711 Personal history of pulmonary embolism; Z82.49 Family history of ischemic heart disease and other diseases of the circulatory system
CPT/HCPCS: 36415; 62323; 80048; 85014; 85018; 86850; 86900; 86901; 88305; 88311; A9270-GY; C1713; C1776; J1100; J1644; J1650; J1885; J1940; J2250; J2270; J2405; J2704; J2765; J3010